=== PATIENT | female | born 1940 | race Caucasian/White ===

== ENCOUNTER → 2020-12-27 | Day surgery (SDC) | payer MEDICARE, OTHER ==
[~2020-12-27] MED LIST: ALBU8HFA2 IH; ASPI-630 PO; FLUT12AE IH; LETR2.5T2 PO; MAG-124 PO; MONT4GRA2 PO; MULT-245 PO
[2020-12-27 13:18] VITALS: BP 144/74
== END | disposition home or self-care (01) ==
LOC: SURG 13:04 → EDSEX 13:04
PROVIDERS: ATTEND Anesthesiology
DX: M54.5 Low back pain (principal); J45.909 Unspecified asthma, uncomplicated; M19.90 Unspecified osteoarthritis, unspecified site; M47.816 Spondylosis without myelopathy or radiculopathy, lumbar region; M48.061 Spinal stenosis, lumbar region without neurogenic claudication; Z79.899 Other long term (current) drug therapy; Z87.01 Personal history of pneumonia (recurrent); Z88.0 Allergy status to penicillin; Z88.8 Allergy status to other drugs, medicaments and biological substances; Z79.82 Long term (current) use of aspirin
CPT/HCPCS: 99204; G0463

== ENCOUNTER → 2021-01-10 | Day surgery (SDC) | payer MEDICARE, OTHER ==
[~2021-01-10] MED LIST changes: +0.9 % SODIUM CHLORIDE 10 ML VIAL. ONE; +DEXAMETHASONE SOD PHOS 10 MG/ML VIAL. ONE; +IOHEXOL 300 MG/ML 50 ML VIAL. ONE; +LIDOCAINE 1% PF 30 ML VIAL. ONE
[2021-01-10 11:33] VITALS: BP 145/65
== END | disposition home or self-care (01) ==
LOC: SURG 10:59
PROVIDERS: ATTEND Anesthesiology
DX: M54.16 Radiculopathy, lumbar region (principal); M19.90 Unspecified osteoarthritis, unspecified site; J45.909 Unspecified asthma, uncomplicated; M48.061 Spinal stenosis, lumbar region without neurogenic claudication; Z88.0 Allergy status to penicillin; Z88.8 Allergy status to other drugs, medicaments and biological substances; Z79.899 Other long term (current) drug therapy; Z79.82 Long term (current) use of aspirin; Z90.13 Acquired absence of bilateral breasts and nipples; Z87.01 Personal history of pneumonia (recurrent)
CPT/HCPCS: 64483; J1100; Q9967; 45381; 62323

== ENCOUNTER → 2021-02-07 | Day surgery (SDC) | payer MEDICARE, OTHER ==
[~2021-02-07] MED LIST changes: -0.9 % SODIUM CHLORIDE 10 ML VIAL. ONE; -DEXAMETHASONE SOD PHOS 10 MG/ML VIAL. ONE; -IOHEXOL 300 MG/ML 50 ML VIAL. ONE; -LIDOCAINE 1% PF 30 ML VIAL. ONE
[2021-02-07 11:23] VITALS: BP 143/71
--- NOTE | 2021-02-07 17:33 | RAD ---
XR L-SPINE BENDING ONLY 2-3 VIEWS History: Reason: BACK PAIN / Spl. Instructions: / History: Technique: 2 views lumbar spine flexion and extension. Comparison: None. Findings: Normal vertebral body alignment with flexion and extension. Normal vertebral body height. No fracture . Advanced multilevel degenerative disc changes most prominent L1-L2, L2-L3 and L3-L4. Facet arthropa thy most prominent L4-5 and L5-S1. Impression: 1. Advanced multilevel lumbar spondylosis. Electronically signed by: Shaan Damon DO (02/07/2021 5:31 PM) [id number]
== END | disposition home or self-care (01) ==
LOC: SURG 11:09
PROVIDERS: ATTEND Anesthesiology
DX: M47.816 Spondylosis without myelopathy or radiculopathy, lumbar region (principal); M48.061 Spinal stenosis, lumbar region without neurogenic claudication; M40.209 Unspecified kyphosis, site unspecified; J45.909 Unspecified asthma, uncomplicated; M19.90 Unspecified osteoarthritis, unspecified site; Z87.01 Personal history of pneumonia (recurrent); Z90.13 Acquired absence of bilateral breasts and nipples; Z98.890 Other specified postprocedural states; Z79.899 Other long term (current) drug therapy; Z79.82 Long term (current) use of aspirin; Z88.0 Allergy status to penicillin; Z88.8 Allergy status to other drugs, medicaments and biological substances
CPT/HCPCS: 72100; 99214; G0463

== ENCOUNTER → 2021-05-09 | Day surgery (SDC) | payer MEDICARE, OTHER ==
[~2021-05-09] MED LIST changes: +BUPIVACAINE MPF 0.25% 10 ML VIAL. ONE; +LIDOCAINE 1% PF 30 ML VIAL. ONE
[2021-05-09 13:38] VITALS: BP 14/70
== END | disposition home or self-care (01) ==
LOC: SURG 11:58
PROVIDERS: ATTEND Anesthesiology
DX: M51.36 Other intervertebral disc degeneration, lumbar region (principal); M48.061 Spinal stenosis, lumbar region without neurogenic claudication; M79.18 Myalgia, other site; M41.9 Scoliosis, unspecified; M47.816 Spondylosis without myelopathy or radiculopathy, lumbar region; J45.909 Unspecified asthma, uncomplicated; M19.90 Unspecified osteoarthritis, unspecified site; Z79.82 Long term (current) use of aspirin; Z79.899 Other long term (current) drug therapy; Z98.890 Other specified postprocedural states; Z88.0 Allergy status to penicillin; Z88.1 Allergy status to other antibiotic agents
CPT/HCPCS: 64493; 64494; J3490

== ENCOUNTER → 2021-05-25 | Outpatient (CLI) | payer MEDICARE, OTHER ==
[2021-05-09 13:38] VITALS: BP 14/70
[~2021-05-25] MED LIST changes: -BUPIVACAINE MPF 0.25% 10 ML VIAL. ONE; -LIDOCAINE 1% PF 30 ML VIAL. ONE
--- NOTE | 2021-05-26 09:29 | RAD ---
INDICATION: Reason: CHRONIC LOW BACK PAIN / Spl. Instructions: / History: COMPARISON: None. IMPRESSION: Sacroiliac joints: 5 views obtained. Mild degenerative changes of the bilateral hips. Mild sclerosis at left greater than right sacroiliac joints which could be from mild degenerative changes. No defini te acute fracture or dislocation. There are some calcific density structure seen within the bilateral pelvis which could be from phleboliths and vascular calcifications but cannot exclude urinary tract stone on plain film. Sacrum: 3 views obtained. Degenerative changes of the pubic symphysis with osteophyte formation and s clerosis. On the lateral view at the anterior aspect of the distal sacrum there is a subtle lucency s een. Could be prominent cartilage in the area but would correlate with point tenderness to ensure thi s is not from a fracture. Degenerative changes of partially visualized lumbar spine. Electronically signed by: Asher Guzman MD (05/26/2021 9:27 AM) [id number]
== END ==
LOC: RAD 14:39
PROVIDERS: ATTEND Nurse Practitioner Family
DX: M25.851 Other specified joint disorders, right hip (principal); M25.852 Other specified joint disorders, left hip; M25.759 Osteophyte, unspecified hip
CPT/HCPCS: 72202; 72220

== ENCOUNTER → 2021-06-13 | Day surgery (SDC) | payer MEDICARE, OTHER ==
[2021-06-13 12:17] VITALS: BP 125/58
== END | disposition home or self-care (01) ==
LOC: SURG 11:26
PROVIDERS: ATTEND Anesthesiology
DX: M48.061 Spinal stenosis, lumbar region without neurogenic claudication (principal); M51.36 Other intervertebral disc degeneration, lumbar region; M47.816 Spondylosis without myelopathy or radiculopathy, lumbar region; M53.3 Sacrococcygeal disorders, not elsewhere classified; M41.9 Scoliosis, unspecified; J45.909 Unspecified asthma, uncomplicated; M19.90 Unspecified osteoarthritis, unspecified site; Z79.899 Other long term (current) drug therapy; Z98.890 Other specified postprocedural states; Z79.82 Long term (current) use of aspirin; Z88.0 Allergy status to penicillin; Z88.1 Allergy status to other antibiotic agents
CPT/HCPCS: 99213; G0463